=== PATIENT | female | born 2005 | race Two or more races ===

== ENCOUNTER → 2023-02-23 | Emergency (ER) | payer OTHER ==
[~2023-02-23] VITALS: Ht 154.9 cm; Wt 51.3 kg
[~2023-02-23] MED LIST: CLARITIN10 M1; TUSNEL LIQUID178 ML PO; ZITHROMAX500 MG PO; ZYRTEC10 MG PO
== END | disposition home or self-care (01) ==
LOC: ER 04:14 → EMR PED 04:14 → ER 06:15
DX: U07.1 COVID-19 (principal)

== ENCOUNTER 2023-06-16 10:59 | Outpatient (CLI) | payer OTHER | END 2023-06-16 11:42 | disposition home or self-care (01) | LOC: PRENATAL 10:59 | PROVIDERS: ATTEND Obstetrics & Gynecology Maternal & Fetal Medicine | DX: O36.8199 Decreased fetal movements, unspecified trimester, other fetus (principal); O99.891 Other specified diseases and conditions complicating pregnancy; O36.5990 Maternal care for other known or suspected poor fetal growth, unspecified trimester, not applicable or unspecified; Z3A.35 35 weeks gestation of pregnancy ==

== ENCOUNTER 2023-06-24 14:55 | Outpatient (CLI) | payer OTHER | END 2023-06-24 15:28 | disposition home or self-care (01) | LOC: PRENATAL 14:55 | PROVIDERS: ATTEND Obstetrics & Gynecology Maternal & Fetal Medicine | DX: O26.849 Uterine size-date discrepancy, unspecified trimester (principal); O36.8199 Decreased fetal movements, unspecified trimester, other fetus; O99.891 Other specified diseases and conditions complicating pregnancy; O36.5990 Maternal care for other known or suspected poor fetal growth, unspecified trimester, not applicable or unspecified; Z3A.36 36 weeks gestation of pregnancy ==

== ENCOUNTER 2023-06-25 18:45 | Inpatient (IN) | payer OTHER ==
[~2023-06-25] VITALS: Ht 154.9 cm; Wt 64.9 kg
[2023-06-25 20:09] LABS: URINE APPEARANCE Cloudy; URINE BACTERIA 4951.7 uL (0.0-1933); URINE BILIRRUBIN Negative (NEGATIVE); URINE BLOOD Negative; URINE COLOR Yellow; URINE EPITHELIAL CELLS 53.6 uL (0.0-38.8); URINE GLUCOSE Negative (NEGATIVE); URINE LEUKOCYTE Large; URINE NITRATE Negative; URINE PROTEIN Trace (NEGATIVE); URINE WBC 527.3 uL (0.0-23.2)
[2023-06-25 20:12] LABS: HEMATOCRIT 25.9 % (36.0-45.00); MEAN CELL VOLUME 77.4 fL (80.00-100.00); MEAN CORPUSCULAR HEMOGLOBIN 25.4 pg (27.00-32.0); MEAN CORPUSCULAR HGB CONC 32.8 g/dl (32.0-36.0); PLATELET COUNT 296 K/uL (150-450); RED BLOOD COUNT 3.34 M/uL (4.00-6.00); RED CELL DISTRIBUTION WIDTH 16.3 % (11.5-14.5)
[2023-06-25 20:13] LABS: HEMOGLOBIN 8.5 g/dL (12.0-15.00)
[2023-06-25 20:17] LABS: URINE RBC 0.7 uL (0.0-20.8)
[2023-06-25 20:26] LABS: INR < 0.93; PARTIAL THROMBOPLASTIN TIME 25.1 SECONDS (22.0-34.0); PROTHROMBIN TIME 9.5 SECONDS (9.0-11.5)
[2023-06-25 20:32] LABS: ALBUMIN 2.8 gm/dL (3.4-5.0); BILIRUBIN TOTAL 0.66 mg/dL (0.3-1.2); CALCIUM 9.2 mg/dL (8.5-10.1); CREATININE SERUM 0.5 mg/dL (0.55-1.02); GFR 158.94; GLOBULINA 3.8 G/DL (2.4-3.5); POTASSIUM 4.18 mEq/L (3.5-5.1); TOTAL PROTEIN 6.6 gm/dL (6.4-8.2)
[2023-06-25] MEDS ORDERED: PRENATAL CAPLE1 EAC1 PO (20:50)
[2023-06-26 18:26] LABS: ABG PH 7.289 (7.35-7.45); BASE EXCESS -6.2 mmol/l; BICARBONATE 20.2 mmol/l (23-25); Tco2 21.5 mmol/l
[2023-06-26 19:01] LABS: ABG PO2 27.7 mmHg (80-100)
[2023-06-26 19:02] LABS: o2 21 %
== END 2023-06-28 13:07 | disposition home or self-care (01) | DRG 768 ==
LOC: OB/GYN 18:45 → LDR 18:45 → OB/GYN 06-26 16:09
PROVIDERS: ADMIT Obstetrics & Gynecology; ATTEND Obstetrics & Gynecology
PROC: 3E0P7VZ Introduction of Hormone into Female Reproductive, Via Natural or Artificial Opening (ICD-10-PCS; 2023-06-25)
PROC: 4A1HXCZ Monitoring of Products of Conception, Cardiac Rate, External Approach (ICD-10-PCS; 2023-06-25)
PROC: 10E0XZZ Delivery of Products of Conception, External Approach (ICD-10-PCS; principal; 2023-06-26)
PROC: 0DQR0ZZ Repair Anal Sphincter, Open Approach (ICD-10-PCS; 2023-06-26)
PROC: 3E033VJ Introduction of Other Hormone into Peripheral Vein, Percutaneous Approach (ICD-10-PCS; 2023-06-26)
DX: O70.21 Third degree perineal laceration during delivery, IIIa (principal); Z37.0 Single live birth; Z3A.37 37 weeks gestation of pregnancy; Z20.822 Contact with and (suspected) exposure to COVID-19